=== PATIENT | female | born 1995 | race Caucasian/White ===

== ENCOUNTER 2018-02-15 10:16 | Emergency (ER) | payer SELFPAY ==
[~2018-02-15] VITALS: Ht 167.6 cm; Wt 69.6 kg
[~2018-02-15 10:16] MED LIST: CIPRO500 MG PO; DAILY VALUE1 EACH PO; LO LOESTRIN FE1 EACH PO; MIRALAX255 GM PO
[2018-02-15 10:42] LABS: HEMATOCRIT 41.4 % (36.0-46.0); HEMOGLOBIN 14.6 G/DL (11.9-15.5); MCH 29.5 PG (29.0-34.0); MCHC 35.3 G/DL (30.0-36.0); MCV 83.6 FL (83-99); PLATELET COUNT 306 K/uL (156-360); RBC DIS.WIDTH-CV 12.4 % (11.8-14.6); RBC DIS.WIDTH-SD 37.8 % (39-53); RED BLOOD COUNT 4.95 M/uL (3.80-5.20); WHITE BLOOD COUNT 9.1 K/uL (4.1-10.2)
[2018-02-15 11:26] LABS: ALBUMIN 4.5 G/DL (3.2-4.8); CHLORIDE 103 MEQ/L (99-109); DIRECT BILIRUBIN 0.1 mg/dL (0.0-0.3); POTASSIUM 3.9 MEQ/L (3.7-5.4); SODIUM 139 MEQ/L (136-147); TOTAL BILIRUBIN 0.7 MG/DL (0.0-1.0)
[2018-02-15 11:32] LABS: ALKALINE PHOSPHATASE 51 IU/L (3-129); ALT (GPT) 12 IU/L (3-49); AST (GOT) 12 IU/L (2-34); CREATININE 0.8 MG/DL (0.6-1.3); GFR ESTIMATE (CALCULATED) > 59 mL/min/; GLUCOSE 146 mg/dL (70-99); LIPASE 23 U/L (1.0-51.0); TOTAL PROTEIN 7.4 G/DL (6.4-8.3); UREA NITROGEN (BUN) 12 mg/dL (9-23)
[2018-02-15 11:34] LABS: TROP-I INTERPRETATION NEGATIVE; TROPONIN-I < 0.01 ng/mL (0.0-0.30)
[2018-02-15 11:58] LABS: APPEARANCE CLEAR ((CLEAR)); BILIRUBIN NEGATIVE; BLOOD NEGATIVE; COLOR YELLOW ((YELLOW)); GLUCOSE (STRIP) NEGATIVE; KETONES NEGATIVE; LEUKOCYTES MODERATE; NITRITE NEGATIVE; PROTEIN (STRIP) NEGATIVE; SPECIFIC GRAVITY 1.015 (1.000-1.030); UROBILINOGEN 0.2 MG/DL (0.2-1.0)
[2018-02-15 12:02] LABS: QUANTITATIVE HCG < 4.0 MIU/ML
[2018-02-15 12:03] LABS: BACTERIA RARE /HPF; EPITHELIAL CELLS 1+ /HPF; MUCUS TRACE /LPF; RED BLOOD CELLS 0-5 /HPF (0-5); UCUL ADDED? YES; WHITE BLOOD CELLS 15-20 /HPF (0-5)
[2018-02-15 15:30] VITALS: BP 113/68
== END 2018-02-15 15:30 | disposition home or self-care (01) ==
LOC: EME 10:16
PROVIDERS: Physician Assistant Medical
DX: R10.11 Right upper quadrant pain (principal); R07.89 Other chest pain; Z79.3 Long term (current) use of hormonal contraceptives; Z88.0 Allergy status to penicillin
CPT/HCPCS: 71275; 76705; 80048; 80076; 81003; 83690; 84484; 84702; 85027; 85379; 87086; 93005; 99281; 99285; J1885; J7030